=== PATIENT | female | born 1975 ===

== ENCOUNTER 2018-04-29 09:22 | Outpatient (CLI) | payer SELFPAY, OTHER | END 2018-04-29 09:23 | disposition home or self-care (01) | LOC: C.USIC 09:22 ==

== ENCOUNTER 2018-05-01 11:38 | Outpatient (CLI) | payer SELFPAY | END 2018-05-01 11:39 | disposition home or self-care (01) | LOC: C.LAB 11:38 | DX: R10.32 Left lower quadrant pain (principal) ==

== ENCOUNTER 2018-08-21 10:05 | Outpatient (CLI) | payer OTHER | END 2018-08-21 10:06 | disposition home or self-care (01) | LOC: C.USIC 10:05 | DX: N83.201 Unspecified ovarian cyst, right side (principal) ==